=== PATIENT | male | born 1960 | race Caucasian/White ===

== ENCOUNTER → 2018-12-16 | Outpatient (CLI) | payer BC ==
--- NOTE | 2018-12-16 18:49 | Diagnostic Imaging Report ---
PROCEDURE: MRI right upper extremity without contrast. TECHNIQUE: Multiplanar, multisequence non contrast-enhanced MRI of the upper extremity was accomplished. INDICATION: Pain to fifth digit. COMPARISON: There are no prior studies available for comparison. FINDINGS: By history, the patient has pain along the ulnar aspect of the hand. A marker was placed at the area of concern. In this region there is some increased signal within the subcutaneous fat in this area on the proton dense series. This does suggest mild edema/inflammation. There is also a small amount of fluid within the metacarpophalangeal joint and this too suggests inflammation. Furthermore on the T2 sagittal series the attachment of the common extensor tendon to the base of the proximal phalanx appears to have been disturbed as the common extensor tendon is not adherent to the base of the proximal phalanx (page 7 of 14, series 7). The tendon is not totally disrupted and is not retracted or bunched. The flexor tendon appears to be intact. The collateral ligaments about the metacarpophalangeal joint show no definite abnormality although the ulnar collateral ligament is somewhat irregular. There is no abnormal signal arising from the osseous structures to indicate bone edema or a fracture. IMPRESSION: 1. There has been a slight separation of the attachment of the common extensor tendon from the dorsal base of the proximal phalanx of the fifth digit. There is also associated edema/inflammation in this area as well as a small amount of fluid within the joint itself. 2. The ulnar collateral ligament is slightly irregular but not clearly torn. 3. There is no acute bony abnormality noted. Dictated by: Dictated on workstation # [id number]
== END ==
LOC: RAD 12:49
PROVIDERS: ATTEND Nurse Practitioner
DX: S66.39 Other injury of extensor muscle, fascia and tendon of other and unspecified finger at wrist and hand level (principal); M25.441 Effusion, right hand
CPT/HCPCS: 73218

== ENCOUNTER 2019-01-09 06:57 | Outpatient (CLI) | payer BC ==
[~2019-01-09] VITALS: Ht 177.8 cm; Wt 99.5 kg
[2019-01-09] MEDS ORDERED: MELA1TAB20 PO (13:14)
[2019-01-09] MEDS ORDERED: LISI-552 PO (13:14)
[2019-01-09] MEDS ORDERED: MELO15TA39 PO (13:14)
[2019-01-09] MEDS ORDERED: HYDR25TA4 PO (13:14)
[2019-01-09] MEDS ORDERED: METH-288 PO (13:14)
[2019-01-09] MEDS ORDERED: ZOLP10TA PO (13:14)
== END 2019-01-09 13:16 | disposition home or self-care (01) ==
LOC: PREOP 06:57
PROVIDERS: ATTEND Surgery
DX: Z01.818 Encounter for other preprocedural examination (principal)

== ENCOUNTER 2019-01-16 07:02 | Day surgery (SDC) | payer BC ==
[~2019-01-16 07:02] MED LIST: HYDR25TA4 PO; LISI-552 PO; MELA1TAB20 PO; MELO15TA39 PO; METH-288 PO; ZOLP10TA PO
[2019-01-16] MEDS ORDERED: LACTATED RINGERS 1,000 ML IV ONE (07:04)
[2019-01-16] MEDS ORDERED: LACTATED RINGERS 1,000 ML IV STA (07:13)
[2019-01-16 07:39] VITALS: BP 142/93
[2019-01-16] MEDS ORDERED: PROPOFOL INJECTION 50 ML IV ONE (07:44)
[2019-01-16] MEDS ORDERED: KETAMINE/NaCl 50 MG/5 ML SYRINGE ONE (07:45)
[2019-01-16] MEDS ORDERED: MIDAZOLAM 2 MG/2 ML (VERSED) VIAL ONE (07:45)
[2019-01-16 08:35] VITALS: BP 92/60
--- NOTE | 2019-01-16 08:35 | Progress Note-Post Operative ---
Post-Operative Progess Note Surgeon (s)/Laborer Cutting Tool (s) Surgeon ARACELIS GALLARDO DO Laborer Cutting Tool: Patti Sanchez Pre-Operative Diagnosis screening colonoscopy Post-Operative Diagnosis Rectal Polyp Diverticula Internal Hemorrhoids Procedure & Operative Findings Date of Procedure 01/16/19 Procedure Performed/Findings Colon with snare Anesthesia Type IV sedation by LEAFLET OR NEWSPAPER DELIVERER Estimated Blood Loss Estimated blood loss (mL): none Specimens/Packing Specimens Removed rectal polyp ARACELIS GALLARDO DO Jan 16, 2019 08:35
--- NOTE | 2019-01-16 08:36 | Endoscopy Discharge Instruct ---
Endo Procedure/Findings Findings 1.: Polyp 2.: Diverticulosis 3.: Internal Hemorrhoids Discharge Instructions - Activity: You might feel a little sleepy until tomorrow. This is due to the medicine you received to relax you. Until tomorrow, you should: NOT drive a car, operate machinery or power tools. NOT drink any alcoholic beverages. NOT make any important decisions or sign importortant papers. Do not return to work until tomorrow, unless otherwise instructed. Resume previous activities tomorrow. Diet: Start by taking liquids. If you tolerate liquids, advance to solid food. make an appointment for one week 1.: Colonscopy in 3 years Notify Physician - If you experience excessive bleeding, unusual abdominal pain, fever, or chest pain, contact your doctor immediately. ARACELIS GALLARDO DO Jan 16, 2019 08:36
[2019-01-16 08:40] VITALS: BP 98/70
--- NOTE | 2019-01-16 08:49 | OPERATIVE REPORT ---
DATE OF SERVICE: 01/16/2019 PREOPERATIVE DIAGNOSIS: Screening colonoscopy. POSTOPERATIVE DIAGNOSES: 1. Rectal polyp. 2. Diverticula. 3. Internal hemorrhoids. PROCEDURE: Colonoscopy with snare polypectomy. SURGEON: Hero Joseph DO FACULTY RESEARCH PHYSICIAN: Patti Sanchez MS3 SPECIMEN: Low rectal polyp. BLOOD LOSS: None. FLUIDS: Per anesthesia. POSTOPERATIVE CONDITION: Stable. INDICATION FOR PROCEDURE: The patient is a 58-year-old male who has never had a colonoscopy and needs one for screening. FINDINGS: The patient had a polyp, it was low in the rectum. He also had some small diverticula and some very minimal internal hemorrhoids. PROCEDURE NOTE: After informed consent was obtained, the patient was brought to the endoscopy suite and placed in the bed in left lateral decubitus position. He was administered IV sedation by the MEASUREMENT SUPERVISOR who then monitored his vitals the entire time, heart rate, blood pressure and pulse ox and the scope was inserted, pushed all the way to [address] in, noted some diverticula, took a picture of this, able to get to the cecum, took a picture of appendiceal orifice, noted the ileocecal valve and then slowly withdrew the scope insufflating to look circumferentially at the denis looking the cecum up the ascending colon to the hepatic flexure, then down the transverse colon to the splenic flexure, into the descending colon and into the sigmoid. Through here saw some very minimal small diverticula, continued down on the way and noted a polyp in the rectum, pulled down through the sigmoid into the rectum. Again, saw this polyp, I elected to do a snare polypectomy with cautery, able to get around the polyp, completely removed it and then suctioned this up to the scope and then pulled the scope all the way out to retrieve the polyp. This was then sent to pathology, placed the scope back in. Retroflexed the scope in the rectal vault, saw some very minimal internal hemorrhoids and then could see where we had removed the polyp from. Took a picture and then removed the scope. The patient tolerated the procedure, recovered in endoscopy suite. Job ID: [id number] DocumentID: [id number] Dictated Date: 01/16/2019 08:33:40 Bottle Capping Machine Operator Date: 01/16/2019 08:48:33 Dictated By: HERO JOSEPH DO [facility]
[2019-01-16 09:00] VITALS: BP 106/77
[2019-01-16 09:06] VITALS: BP 106/77
--- NOTE | 2019-01-16 15:09 | Anesthesia-General Post-Op ---
MAC Patient Condition Mental Status/LOC: Same as Preop Cardiovascular: Satisfactory Nausea/Vomiting: Absent Respiratory: Satisfactory Pain: Controlled Complications: Absent Post Op Complications Complications None Follow Up Care/Instructions Patient Instructions None needed. Anesthesiology Discharge Order Discharge Order Patient is doing well, no complaints, stable vital signs, no apparent adverse anesthesia problems. No complications reported per nursing. DONALD GUTIERREZ CRNA Jan 16, 2019 15:09 POS
== END 2019-01-16 09:08 | disposition home or self-care (01) ==
LOC: ENDO 07:02
PROVIDERS: ATTEND Surgery

== ENCOUNTER → 2019-02-13 | Outpatient (REF) ==
--- NOTE | 2019-02-13 11:38 | Diagnostic Imaging Report ---
INDICATION: Left knee injury. FINDINGS: Three views of the left knee show slight narrowing of the medial tibiofemoral joint space with small osteophytes forming along the medial margin of the articular surface. There is minimal degenerative change of the patellofemoral joint with tiny osteophytes forming superiorly and inferiorly. The lateral tibiofemoral joint spaces are well-maintained. IMPRESSION: Minimal degenerative changes of the patellofemoral joint and medial tibiofemoral joint spaces. No acute abnormality is seen. Dictated by: Dictated on workstation # [id number]
== END | disposition home or self-care (01) ==
LOC: MERGE 11:02 → OCC 11:02
PROVIDERS: ATTEND Family Medicine
CPT/HCPCS: 73562

== ENCOUNTER → 2019-02-23 | Outpatient (REF) | payer BC ==
--- NOTE | 2019-02-23 16:38 | Diagnostic Imaging Report ---
EXAMINATION: MRI of the left knee without contrast from 02/23/2019. TECHNIQUE: Multiplanar, multisequence non contrast-enhanced MRI of the left lower extremity was accomplished. INDICATION: Twisting injury to the left knee in January 2019. Now has left knee pain. FINDINGS: The extensor mechanism is intact. The ACL and the PCL are intact. The MCL is intact. Lateral collateral ligamentous complex is unremarkable. There is diffuse abnormal signal intensity throughout the lateral meniscus, consistent with a diffuse multidirectional tear involving the entire lateral meniscus. The medial meniscus demonstrates similar findings. Radial tear is seen along the meniscal body with heterogeneous signal involving the entire posterior horn of the medial meniscus. Mild abnormal signal intensity in the anterior horn also extends to both the tibial and femoral surfaces, consistent with a tear. Cartilage in the medial compartment demonstrates mild thinning and irregularity with similar findings seen laterally. The patellofemoral cartilage appears maintained. There is a small joint effusion. There is a tiny amount of fluid adjacent to the fibular head, most likely small ganglion. Tiny slit-like Tinoco's cyst is also seen. The popliteus tendon contains mild heterogeneous signal intensity but no discontinuity is seen. Findings could be due to angle of the tendon in the scanner. However, tendinosis is not excluded. On the gradient axial sequence, multiple tiny foci of mild susceptibility artifact are scattered throughout the joint and nonspecific. This is most likely on the basis of a previous surgery, correlate with history. IMPRESSION: 1. 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 2. Ligaments and tendons are intact with abnormal signal along the popliteus tendon, possibly on the basis of tendinosis. 3. Likely prior postoperative findings. 4. Degenerative findings and other incidental change, as described above. Dictated by: Dictated on workstation # [id number]
== END | disposition still patient (30) ==
LOC: RAD 15:30
PROVIDERS: ATTEND Family Medicine
DX: S83.282A Other tear of lateral meniscus, current injury, left knee, initial encounter (principal); S83.242A Other tear of medial meniscus, current injury, left knee, initial encounter; X50.1XXA Overexertion from prolonged static or awkward postures, initial encounter
CPT/HCPCS: 73721

== ENCOUNTER 2019-04-18 08:08 | Outpatient (RCR) | payer OTHER | END 2019-04-18 12:55 | disposition home or self-care (01) | PROVIDERS: ATTEND Orthopaedic Surgery | DX: M25.562 Pain in left knee (principal) ==

== ENCOUNTER 2019-07-13 09:25 | Outpatient (RCR) | payer OTHER | END 2019-09-06 | disposition home or self-care (01) | PROVIDERS: ATTEND Orthopaedic Surgery | DX: M23.304 Other meniscus derangements, unspecified medial meniscus, left knee (principal); M25.562 Pain in left knee; I10 Essential (primary) hypertension; A15.9 Respiratory tuberculosis unspecified ==

== ENCOUNTER → 2020-12-16 | Outpatient (CLI) | payer BC ==
[~2020-12-16] MED LIST changes: -LISI-552 PO; +LISI20TA26 PO
--- NOTE | 2020-12-16 11:30 | Diagnostic Imaging Report ---
INDICATION: Long history of low back pain. EXAMINATION: Lumbar spine MRI without contrast on 12/16/2020. FINDINGS: There is a compression deformity at L1 which appears chronic. No acute fracture is appreciated. The remaining vertebral body heights are maintained. There is grade 1 retrolisthesis at L2-L3 and L4-L5. The remaining alignment is preserved. The tip of the conus is unremarkable in appearance and location. L1-L2: There is bilateral facet and ligamentum flavum hypertrophy. There is a mild broad-based bulging disc. There is flattening of the ventral thecal sac with mild central stenosis. There is moderate bilateral neuroforaminal narrowing. L2-L3: There is intervertebral disc space narrowing, disc desiccation, and a broad-based bulging disc with bilateral facet and ligamentum flavum hypertrophy. There is no significant central narrowing. There is moderate to severe left neuroforaminal narrowing. There is moderate right neuroforaminal stenosis. L3-L4: There is intervertebral disc space narrowing, disc desiccation, and a broad-based bulging disc with bilateral facet and ligamentum flavum hypertrophy. There is secondary mild to moderate central stenosis with narrowing of the lateral recesses bilaterally. There is moderate bilateral neuroforaminal narrowing. L4-L5: There is intervertebral disc space narrowing, disc desiccation, and a right paracentral broad-based bulging disc containing an annular tear. Disc material extends into the right lateral recess causing narrowing. There is bilateral facet and ligamentum flavum hypertrophy. The findings cause moderate central stenosis. There is moderate bilateral neuroforaminal stenosis. L5-S1: There is bilateral facet and ligamentum flavum hypertrophy. No central narrowing is appreciated. Mild broad-based bulging disc material is noted. The neuroforamina appear patent. The visualized intra-abdominal structures are unremarkable. IMPRESSION: 1. Multilevel diffuse degenerative disease as above. 2. Chronic compression deformity at L1. Dictated by: Dictated on workstation # [id number]
== END ==
LOC: RAD 08:00
PROVIDERS: ATTEND Family Medicine
DX: M43.8X6 Other specified deforming dorsopathies, lumbar region (principal); M51.26 Other intervertebral disc displacement, lumbar region; M51.27 Other intervertebral disc displacement, lumbosacral region; M51.36 Other intervertebral disc degeneration, lumbar region; M48.061 Spinal stenosis, lumbar region without neurogenic claudication; M43.16 Spondylolisthesis, lumbar region; M89.38 Hypertrophy of bone, other site; M24.28 Disorder of ligament, vertebrae
CPT/HCPCS: 72148

== ENCOUNTER 2022-07-15 07:05 | Outpatient (CLI) | payer BC ==
[~2022-07-15] VITALS: Ht 177.8 cm; Wt 108.0 kg
[~2022-07-15 07:05] MED LIST changes: -MELA1TAB20 PO; +MELA1TAB72 PO
[2022-07-17] MEDS ORDERED: GABA-490 PO (14:35)
== END 2022-07-17 14:41 | disposition home or self-care (01) ==
LOC: PREOP 07:05
PROVIDERS: ATTEND Surgery
DX: Z01.818 Encounter for other preprocedural examination (principal)

== ENCOUNTER 2022-07-27 09:39 | Day surgery (SDC) | payer BC ==
[~2022-07-27] VITALS: Ht 177 cm; Wt 108.0 kg
[~2022-07-27 09:39] MED LIST changes: +GABA-490 PO
[2022-07-27] MEDS ORDERED: LACTATED RINGERS 1,000 ML IV STA (09:40)
[2022-07-27] MEDS ORDERED: HURRICAINE EXT TUBE (BENZOCAINE) XX PRN (09:45)
--- NOTE | 2022-07-27 09:58 | Progress Note-Pre Operative ---
Pre-Operative Progress Note Date of Available H&P: Jul 07, 2022 Date H&P Reviewed: July 27, 2022 Time H&P Reviewed: 09:57 History & Physical: H&P Reviewed, Patient Examed, No changes noted Pre-Operative Diagnosis: dysphagia ARACELIS GALLARDO DO July 27, 2022 09:58
[2022-07-27 10:00] VITALS: BP 143/95
[2022-07-27] MEDS ORDERED: MIDAZOLAM 2 MG/2 ML (VERSED) VIAL ONE (10:52)
[2022-07-27] MEDS ORDERED: proPOfol 200 MG/20 ML (DIPRIVAN) VIAL IV ONE (11:06)
--- NOTE | 2022-07-27 11:08 | Progress Note-Post Operative ---
Post-Operative Progess Note Surgeon (s)/Side Hemmer (s) Surgeon ARACELIS GALLARDO DO Side Hemmer: none Pre-Operative Diagnosis dysphagia Post-Operative Diagnosis Gastritis Hiatal hernia Procedure & Operative Findings Date of Procedure 07/27/22 Procedure Performed/Findings EGD with biopsy PROCEDURE NOTE: After informed consent was obtained, the patient was brought to the endoscopy suite, placed in bed in left lateral decubitus position. He was administered IV sedation by the PONY ROUGHER who then monitored vitals the entire time, heart rate, blood pressure and pulse ox and the scope was inserted down the mouth through the esophagus into the stomach. On the way down, noted some mild esophagitis, took a picture, pushed into the stomach, pushed past the antrum into the duodenum. Duodenum looked good. Pulled back and did a biopsy of antrum, then retroflexed the scope, saw small hiatal hernia, took a picture of this and then pulled the scope into the GE junction, took another picture of the hiatal hernia and then did a biopsy of the GE junction. Pushed the scope back into the stomach, suctioned all the air out of the stomach. At this point pulled the scope up the esophagus and out the mouth. I did not see any stricture, mass or reason for dysphagia in the esophagus. The patient tolerated the procedure, and he recovered in endoscopy suite. Anesthesia Type IV sedation by PONY ROUGHER Estimated Blood Loss Estimated blood loss (mL): Scant Specimens/Packing Specimens Removed antral bx body of stomach bx GE jxn bx ARACELIS GALLARDO DO July 27, 2022 11:08
--- NOTE | 2022-07-27 11:09 | Endoscopy Discharge Instruct ---
Endo Procedure/Findings Findings 1.: Gastritis 2.: Hiatal Hernia 3.: Other Findings (esophagitis) Discharge Instructions - Activity: You might feel a little sleepy until tomorrow. This is due to the medicine you received to relax you. Until tomorrow, you should: NOT drive a car, operate machinery or power tools. NOT drink any alcoholic beverages. NOT make any important decisions or sign importortant papers. Do not return to work until tomorrow, unless otherwise instructed. Resume previous activities tomorrow. Diet: Start by taking liquids. If you tolerate liquids, advance to solid food. 1.: EGD in 1 year Notify Physician - If you experience excessive bleeding, unusual abdominal pain, fever, or chest pain, contact your doctor immediately. Follow-Up: Other Follow up in my office in one week ARACELIS GALLARDO DO July 27, 2022 11:09
[2022-07-27 11:12] VITALS: BP 96/55
[2022-07-27 11:17] VITALS: BP 93/52
[2022-07-27 11:20] VITALS: BP 108/55
[2022-07-27 12:09] VITALS: BP 108/55
--- NOTE | 2022-07-27 12:58 | Anesthesia-General Post-Op ---
MAC Patient Condition Mental Status/LOC: Same as Preop Cardiovascular: Satisfactory Nausea/Vomiting: Absent Respiratory: Satisfactory Pain: Controlled Complications: Absent Post Op Complications Complications None Follow Up Care/Instructions Patient Instructions None needed. Anesthesiology Discharge Order Discharge Order Patient is doing well, no complaints, stable vital signs, no apparent adverse anesthesia problems. No complications reported per nursing. LORRAINE SETH CRNA July 27, 2022 12:58
== END 2022-07-27 12:05 | disposition home or self-care (01) ==
LOC: ENDO 09:39
PROVIDERS: ATTEND Surgery
DX: K29.50 Unspecified chronic gastritis without bleeding (principal); K31.89 Other diseases of stomach and duodenum; K44.9 Diaphragmatic hernia without obstruction or gangrene; K20.90 Esophagitis, unspecified without bleeding; Z85.038 Personal history of other malignant neoplasm of large intestine; Z87.891 Personal history of nicotine dependence; E66.9 Obesity, unspecified; Z68.34 Body mass index [BMI] 34.0-34.9, adult
CPT/HCPCS: 88305

== ENCOUNTER → 2022-08-26 | Outpatient (CLI) | payer BC ==
--- NOTE | 2022-08-26 10:36 | Diagnostic Imaging Report ---
Indication: Dysphasia. The procedure was performed in conjunction with speech pathology. Video fluoroscopy was performed during swallowing of barium at multiple consistencies. 48 seconds fluoroscopic time was utilized. Patient ingested thin barium as well as applesauce and cracker consistency. Oral phase unremarkable. There is normal epiglottic tilt and laryngeal elevation. No penetration or aspiration was observed. No significant vallecular or piriform sinus residue was detected. IMPRESSION: Unremarkable modified barium swallow. Dictated by: Dictated on workstation # [id number]
== END ==
LOC: RAD 09:19 → EDSTATUS 09:30
PROVIDERS: ATTEND Surgery
DX: R13.10 Dysphagia, unspecified (principal)
CPT/HCPCS: 74230

== ENCOUNTER → 2022-12-28 | Outpatient (CLI) | payer BC ==
[~2022-12-28] MED LIST changes: +CATHETER FLUSH 10 ML SYR IVP PRN; -GABA-490 PO; +GABA-491 PO
[2022-12-28 09:01] VITALS: BP 144/85
--- NOTE | 2022-12-28 12:38 | Cardiology Stress Test Report ---
Stress Test Report Date of Procedure/Referring: Date of Procedure: Dec 28, 2022 PCP Maida Thompson MD Admitting Physician Admitting Physician: Attending Physician: Madalyn Amato MD Baseline Heart Rate: 58 Baseline Blood Pressure: Blood Pressure Systolic: 144 Blood Pressure Diastolic: 85 Vital Signs Date Time Temp Pulse Resp B/P (MAP) Pulse Ox O2 Delivery O2 Flow Rate FiO2 12/28/22 09:01 58 144/85 (104) Baseline Vital Signs Vital Signs Date Time Temp Pulse Resp B/P (MAP) Pulse Ox O2 Delivery O2 Flow Rate FiO2 12/28/22 09:01 58 144/85 (104) Baseline EKG: Baseline EKG: NSR Summary: After explaining the procedure and details to the patient, he signed the consent and was brought to the stress nuclear laboratory. Patient exercised on standard Mina protocol, EKG, heart rate and blood pressure were monitored continuously, resting and stress doses of radio tracer were injected, imaging was acquired and reviewed in the short axis, horizontal long axis and vertical long axis views Patient was able to exercise for a total of [ ] minutes on Mina protocol, METs [ ] Maximum heart rate [ ] Maximum blood pressure [ ] Stress EKG, Minimal nondiagnostic changes Recovery EKG, Return to baseline TID: 0.91 SSS: 0 SDS: 0 EF: 56 Conclusion: Good exercise tolerance for 8 min on Mina protocol Hypertensive response to exercise No ischemia or infarction on SPECT images Normal LV, EF 56% Copy Copies To 1: MAIDA THOMPSON MD, BASHAR J MD Dec 28, 2022 12:38
== END ==
LOC: CARD 06:52
PROVIDERS: ATTEND Internal Medicine Cardiovascular Disease
DX: I10 Essential (primary) hypertension (principal); I25.10 Atherosclerotic heart disease of native coronary artery without angina pectoris
CPT/HCPCS: 78452; 93017; A9502; C8929; 93306